=== PATIENT | female | born 1955 | race Caucasian/White ===

== ENCOUNTER → 2021-04-21 | Outpatient (CLI) | payer MEDICARE, OTHER ==
[~2021-04-21] MED LIST: ALDACTONE 25MG25 MG PO; AMARYL 2MG TABLE2 MG PO; AMOXICILLIN500 MG PO; BACTRIM DS TAB1 EACH PO; BENADRYL 25MG C25 MG PO; BENTYL 20MG TAB20 MG PO; CETAPHIL; CLARITIN10 MG PO; CLEOCIN HCL300 MG PO; COZAAR50 MG PO; CYMBALTA60 MG PO; DITROPAN 5 MG TA5 MG PO; ECOTRIN81 MG PO; ELIQUIS2.5 MG PO; FERROUS SULFAT325 M2 PO; IMODIUM CAP 2 MG2 MG PO; INCRUSE ELLI62.5 MCG INH; INVANZ 1 GM VIAL1 GM IM; INVANZ 1 GM VIAL1 GM IV; JARDIANCE25 MG PO; KEFLEX CAP 500500 MG PO; KEFLEX500 MG PO; LASIX20 MG PO; LEVAQUIN500 MG PO; LEVOFLOXACIN750 MG PO; LOPERAMIDE2 MG PO; MYCOSTATIN POWD15 GM TOP; NEURONTIN 100100 MG PO; NEXIUM40 MG PO; NICOTINE PATCH1 EAC1 TD; NORCO 5-325 TA1 EACH PO; NYSTOP60 GM TD; OMEPRAZOLE20 MG PO; PRAVACHOL40 MG PO; PROAIR HFA8.5 GM INH; SILVADENE CREAM20 GM TD; SILVADENE CREAM20 GM TOP; SINGULAIR10 MG PO; STARLIX 120 MG120 MG PO; SYNTHROID175 MCG PO; THERAGRAN M TAB1 EA PO; TYLENOL 500 MG500 MG PO; TYLENOL W/CODEIN1 E1 PO; TYLENOL WITH C1 EACH PO; VIBRAMYCIN100 MG PO; VITAMIN D250 MCG PO; VITAMIN D32000 UNI1 PO; VITAMIN D350 MC1 PO; ZETIA 10 MG TAB10 MG PO; [UNRECOGNIZED DRUG - OTHER]
== END ==
LOC: RAD 14:29
DX: M54.5 Low back pain (principal); M47.812 Spondylosis without myelopathy or radiculopathy, cervical region; M47.816 Spondylosis without myelopathy or radiculopathy, lumbar region
CPT/HCPCS: 72050; 72110

== ENCOUNTER → 2021-04-28 | Outpatient (CLI) | payer MEDICARE, OTHER | LOC: RAD 14:53 | DX: M25.511 Pain in right shoulder (principal) | CPT/HCPCS: 73020 ==

== ENCOUNTER → 2021-11-16 | Outpatient (CLI) | payer MEDICARE, OTHER | LOC: KOH-I 11-14 15:30 | DX: M79.662 Pain in left lower leg (principal); M79.661 Pain in right lower leg | CPT/HCPCS: 93925; 93970 ==

== ENCOUNTER 2022-01-24 14:46 | Inpatient (IN) | payer MEDICARE, OTHER ==
[~2022-01-24] VITALS: Ht 149.9 cm; Wt 83.0 kg
[~2022-01-24 14:46] MED LIST changes: +HYDROCODON-ACE1 EAC4 PO; -NORCO 5-325 TA1 EACH PO; -SYNTHROID175 MCG PO; +SYNTHROID200 MCG PO
[2022-01-24 16:33] LABS: HEMOGLOBIN 14.7 gm/dl (12.3-15.3); RED BLOOD COUNT 4.96 M/UL (4.00-5.10); WHITE BLOOD COUNT 20.7 K/UL (4.5-11.0)
[2022-01-25 04:24] LABS: WHITE BLOOD COUNT 19.2 K/UL (4.5-11.0)
[2022-01-25 04:28] LABS: HEMOGLOBIN 12.6 gm/dl (12.3-15.3); RED BLOOD COUNT 4.3 M/UL (4.00-5.10)
[2022-01-25] MEDS ORDERED: OMEPRAZOLE20 MG PO (11:38)
[2022-01-25] MEDS ORDERED: LORATADINE10 MG PO (11:38)
[2022-01-26 04:33] LABS: HEMOGLOBIN 11.9 gm/dl (12.3-15.3); RED BLOOD COUNT 4.08 M/UL (4.00-5.10)
[2022-01-26 05:00] LABS: WHITE BLOOD COUNT 11.5 K/UL (4.5-11.0)
[2022-01-27] MEDS ORDERED: LEVOFLOXACIN500 MG PO (12:53)
[2022-01-27] MEDS ORDERED: COZAAR25 MG PO (12:53)
[2022-01-27] MEDS ORDERED: NICOTINE PATCH1 EAC1 TOP (12:53)
[2022-01-27] MEDS ORDERED: THERAGRAN M TAB1 EA PO (12:53)
[2022-01-27 13:53] LABS: HEMOGLOBIN 12.1 gm/dl (12.3-15.3); RED BLOOD COUNT 4.14 M/UL (4.00-5.10); WHITE BLOOD COUNT 7.4 K/UL (4.5-11.0)
--- NOTE | 2022-01-27 14:13 | NUR ---
01/27/22 1408 REPORT CALLED TO [facility]ANN[facility] AT [facility]
== END 2022-01-27 16:25 | disposition home health service (06) | DRG 698 ==
LOC: ER1 14:46 → M/S 21:06 → CDU 21:06 → M/S 22:26
PROVIDERS: Family Medicine; Internal Medicine Infectious Disease; ADMIT Internal Medicine
DX: T83.511A Infection and inflammatory reaction due to indwelling urethral catheter, initial encounter (principal); A41.9 Sepsis, unspecified organism; R65.20 Severe sepsis without septic shock; Z20.822 Contact with and (suspected) exposure to COVID-19; N17.0 Acute kidney failure with tubular necrosis; N13.6 Pyonephrosis; F11.20 Opioid dependence, uncomplicated; Y83.8 Other surgical procedures as the cause of abnormal reaction of the patient, or of later complication, without mention of misadventure at the time of the procedure; E03.9 Hypothyroidism, unspecified; E78.5 Hyperlipidemia, unspecified; E66.01 Morbid (severe) obesity due to excess calories; M79.7 Fibromyalgia; K58.9 Irritable bowel syndrome, unspecified; E86.1 Hypovolemia; F17.210 Nicotine dependence, cigarettes, uncomplicated; E11.65 Type 2 diabetes mellitus with hyperglycemia; E11.22 Type 2 diabetes mellitus with diabetic chronic kidney disease; R53.81 Other malaise; Z74.01 Bed confinement status; Z79.01 Long term (current) use of anticoagulants; Z79.82 Long term (current) use of aspirin; Z87.440 Personal history of urinary (tract) infections; Z83.3 Family history of diabetes mellitus; Z80.1 Family history of malignant neoplasm of trachea, bronchus and lung; Z84.89 Family history of other specified conditions; Z82.49 Family history of ischemic heart disease and other diseases of the circulatory system
CPT/HCPCS: 36415; 51798; 80053; 81001; 82962; 83036; 83605; 83735; 85025; 85027; 87077; 87086; 87186; 94760; 96361; 96374; 99285; J0696; J1335; J1650; J2405

== ENCOUNTER → 2022-03-27 | Outpatient (CLI) | payer MEDICARE, OTHER ==
[~2022-03-27] MED LIST changes: +COZAAR25 MG PO; +LEVOFLOXACIN500 MG PO; +LORATADINE10 MG PO; +NICOTINE PATCH1 EAC1 TOP
== END ==
LOC: KOH-I 14:55
DX: F17.210 Nicotine dependence, cigarettes, uncomplicated (principal); R91.8 Other nonspecific abnormal finding of lung field
CPT/HCPCS: 71271